=== PATIENT | male | born 1985 | race Caucasian/White ===

== ENCOUNTER 2020-10-21 21:50 | Emergency (ER) | payer MEDICAID ==
[2020-10-21] MEDS ORDERED: Ketorolac 60 MG/2 ML SDV IM ONE (22:29)
[2020-10-21] MEDS ORDERED: Cyclobenzaprine 10 MG Tab PO ONE (22:29)
--- NOTE | 2020-10-21 22:31 | EDM.PDOC ---
ED HPI GENERAL MEDICAL PROBLEM - General Chief Complaint: Back Pain or Injury Stated Complaint: LOWER BACK PAIN Time Seen by Provider: 10/21/20 22:18 Source of Information: Reports: Patient, Family, RN Notes Reviewed History Limitations: Reports: No Limitations - History of Present Illness INITIAL COMMENTS - FREE TEXT/NARRATIVE: 35-year-old gentleman presents emergency department with a complaint of low back pain predominantly on the right side, he does have a history of back pain usually controlled with ibuprofen however today was much worse no loss of bowel or bladder no fevers does have pain shooting down into his groin on the right side low back Pain Score (Numeric/FACES): 7 - Related Data Allergies Allergy/AdvReac Type Severity Reaction Status Date / Time No Known Allergies Allergy Verified 10/21/20 22:08 Home Meds: Home Meds NK [No Known Home Meds] 10/21/20 [History] Past Medical History Gastrointestinal History: Reports: Colon Polyp, GI Bleed, Hemorrhoids - Infectious Disease History Infectious Disease History: Reports: Chicken Pox, Mononucleosis - Past Surgical History GI Surgical History: Reports: Colonoscopy Social & Family History - Tobacco Use Years of Tobacco use: 17 Packs/Tins Daily: 0.5 - Caffeine Use Caffeine Use: Reports: Coffee, Energy Drinks, Soda - Alcohol Use Days Per Week of Alcohol Use: 7 Number of Drinks Per Day: 2 Total Drinks Per Week: 14 - Recreational Drug Use Recreational Drug Use: Yes Recreational Drug Type: Reports: Marijuana/Hashish Recreational Drug Use Frequency: Daily ED ROS GENERAL - Review of Systems Review Of Systems: See Below Constitutional: Denies: Fever HEENT: Reports: No Symptoms Respiratory: Reports: No Symptoms Cardiovascular: Reports: No Symptoms GI/Abdominal: Reports: No Symptoms : Reports: Other (Pain shooting into the groin) Musculoskeletal: Reports: Back Pain ED EXAM,LOWER BACK PAIN/INJURY - Physical Exam Exam: See Below Exam Limited By: No Limitations General Appearance: Alert, WD/WN, No Apparent Distress Respiratory/Chest: No Respiratory Distress Back Exam: Normal Inspection, Decreased Range of Motion, Muscle Spasm, Paraspinal Tenderness. No: CVA Tenderness (R), CVA Tenderness (L), Vertebral Tenderness Course - Vital Signs Last Recorded V/S: Last Vital Signs Temp 98.2 F 10/21/20 22:09 Pulse 82 10/21/20 22:09 Resp 18 10/21/20 22:09 BP 117/87 10/21/20 22:09 Pulse Ox 96 10/21/20 22:09 - Orders/Labs/Meds Meds: Medications Discontinued Medications Generic Name Dose Route Start Last Admin Trade Name Grupo PRN Reason Stop Dose Admin Cyclobenzaprine HCl 10 mg 10/21/20 22:29 10/21/20 23:38 Cyclobenzaprine 10 Mg Tab PO 10/21/20 22:30 10 mg ONETIME ONE Administration Ketorolac Tromethamine 60 mg 10/21/20 22:29 10/21/20 23:02 Ketorolac 60 Mg/2 Ml Sdv IM 10/21/20 22:30 60 mg ONETIME ONE Administration Departure - Departure Time of Disposition: 00:08 Disposition: Home, Self-Care 01 Condition: Fair Clinical Impression: Low back pain Qualifiers: Chronicity: acute Back pain laterality: right Sciatica presence: without sciatica Qualified Code(s): M54.5 - Low back pain - Discharge Information Instructions: Back Injury Prevention, [id number], Chronic Back Pain, [id number], Acute Back Pain, Adult Referrals: Abdirahman Berry MD [Primary Care Provider] - Forms: ED Department Discharge Additional Instructions: Try the Toradol as pain control try the Flexeril for muscle relaxant, please followup with your primary care provider in 3-5 days if not better, please call return to the emergency department with worsening of symptoms. Sepsis Event Note (ED) - Evaluation Sepsis Screening Result: No Definite Risk - Focused Exam Vital Signs: Vital Signs Temp Pulse Resp BP Pulse Ox 10/21/20 22:09 98.2 F 82 18 117/87 96 - Assessment/Plan Plan: Assessment Acuity = acute Site and laterality = low back pain Etiology = probably related to lifting injury Manifestations = none Location of injury = Home Lab values = none Plan Some improvement combination Toradol Flexeril prescription for Toradol 10 mg p.o. 3 times daily as needed total #20 and Flexeril 10 mg 1 tab p.o. 3 times daily total #30 follow-up primary care 3 to 5 days for reevaluation This note was dictated using [employer] voice recognition software please call with any questions on syntax or grammar.
== END 2020-10-22 00:17 | disposition home or self-care (01) ==
LOC: JP.ED 21:50
DX: M54.5 Low back pain (principal); Z72.0 Tobacco use
CPT/HCPCS: 96372; 99283; A9270; J1885